=== PATIENT | male | born 1995 | race Two or more races ===

== ENCOUNTER 2023-05-15 17:09 | Inpatient (IN) | payer OTHER ==
[~2023-05-15] VITALS: Ht 182.9 cm; Wt 95.3 kg
[2023-05-15] MEDS ORDERED: FINESTERIDE (17:26)
--- NOTE | 2023-05-15 17:30 | NUR ---
PTE ALERTA Y ORIENTADO X3 REFIERE DOLOR EPIGASTRICO, VOMITOS X3 Y AL MOMENTO DE TRIAGE PTE PRESENTA HIPO JACKIE. SE MIDEN SV Y SE UBICA.
[2023-05-15] MEDS ORDERED: 0.9 % SODIUM CHLORIDE 1,000 ML IV STA (17:46)
[2023-05-15] MEDS ORDERED: FAMOTIDINE/PF 20 MG in 0.9 % SODIUM CHLORIDE 8 ML IV PUSH STA (17:46)
[2023-05-15] MEDS ORDERED: ONDANSETRON HCL 2 MG/ML VIAL IV STA (17:46)
[2023-05-15 18:13] LABS: HEMATOCRIT 38.7 % (39.0-48.0); HEMOGLOBIN 13.4 g/dL (13-16.00); MEAN CELL VOLUME 79.6 fL (80.0-100.00); MEAN CORPUSCULAR HEMOGLOBIN 27.5 pg (27.00-32.0); MEAN CORPUSCULAR HGB CONC 34.5 g/dl (32.0-36.0); PLATELET COUNT 233 K/uL (150-450); RED BLOOD COUNT 4.87 M/uL (4.00-6.00); RED CELL DISTRIBUTION WIDTH 13.2 % (11.5-14.5)
[2023-05-15] MEDS ORDERED: MEPERIDINE HCL/PF 50 MG/ML VIAL IM ONE (18:15)
--- NOTE | 2023-05-15 18:19 | NUR ---
PTE ALERTA Y ORIENTADO X3. SE EDUCA SOBRE TX MEDICO, EL MISMO REFIERE ETENDER. SE LEON MUESTRAS DE LAB BAJO MEDIDAS ASEPTICAS Y SE ADMINISTRAN MEDICAMENTOS ONDINA ORDEN MEDICA, EL MISMO NO PRESENTA REACCION ADVERSA
[2023-05-15 18:26] LABS: ALBUMIN 3.9 gm/dL (3.4-5.0); BILIRUBIN TOTAL 1.23 mg/dL (0.3-1.2); CALCIUM 9.1 mg/dL (8.5-10.1); CREATININE SERUM 0.98 mg/dL (0.70-1.30); GFR 91.07; GLOBULINA 3.8 G/DL (2.4-3.5); POTASSIUM 3.58 mEq/L (3.5-5.1); TOTAL PROTEIN 7.7 gm/dL (6.4-8.2)
[2023-05-15] MEDS ORDERED: PIPERACILLIN/TAZOBACTAM SODIUM 3.375 GM VIAL IV ONE (23:00)
--- NOTE | 2023-05-15 23:21 | NUR ---
SE ADMINISTRA MEDICAMENTO ONDINA ORDEN MEDICA BAJO MEDIDAS ASEPTICAS.
[2023-05-15] MEDS ORDERED: ONDANSETRON HCL 4 MG in DEXTROSE 5 % IN WATER 50 ML IV PRN (23:45)
[2023-05-15] MEDS ORDERED: 0.9 % SODIUM CHLORIDE 1,000 ML IV SCH (23:45)
[2023-05-16] MEDS ORDERED: PIPERACILLIN/TAZOBACTAM SODIUM 3.375 GM in DEXTROSE 5 % IN WATER 100 ML IV SCH
[2023-05-16] MEDS ORDERED: MORPHINE SULFATE 2 MG/ML CARTRIDGE IV SCH
[2023-05-16 08:18] LABS: INR 1.12; PROTHROMBIN TIME 11.7 SECONDS (9.0-11.5)
[2023-05-16] MEDS ORDERED: PANTOPRAZOLE SODIUM 40 MG/VIAL VIAL IV SCH (09:00)
[2023-05-16] MEDS ORDERED: 0.9 % SODIUM CHLORIDE 1,000 ML IV SCH (10:45)
[2023-05-16] MEDS ORDERED: ONDANSETRON HCL 2 MG/ML VIAL IV PRN (10:45)
[2023-05-16] MEDS ORDERED: BUPIVACAINE HCL/PF 0.5% 1ML ONE (10:59)
[2023-05-16] MEDS ORDERED: PIPERACILLIN/TAZOBACTAM SODIUM 3.375 GM VIAL IV ONE (13:56)
[2023-05-17 07:19] LABS: HEMATOCRIT 35.6 % (39.0-48.0); HEMOGLOBIN 12.3 g/dL (13-16.00); MEAN CELL VOLUME 80.6 fL (80.0-100.00); MEAN CORPUSCULAR HEMOGLOBIN 27.8 pg (27.00-32.0); MEAN CORPUSCULAR HGB CONC 34.5 g/dl (32.0-36.0); PLATELET COUNT 193 K/uL (150-450); RED BLOOD COUNT 4.41 M/uL (4.00-6.00); RED CELL DISTRIBUTION WIDTH 13.4 % (11.5-14.5)
[2023-05-17 07:52] LABS: CALCIUM 8.4 mg/dL (8.5-10.1); CREATININE SERUM 1.09 mg/dL (0.70-1.30); GFR 80.55; POTASSIUM 3.61 mEq/L (3.5-5.1)
[2023-05-17 09:07] LABS: INR 1.11; PARTIAL THROMBOPLASTIN TIME 26.5 SECONDS (22.0-34.0); PROTHROMBIN TIME 11.6 SECONDS (9.0-11.5)
== END 2023-05-17 17:56 | disposition home or self-care (01) | DRG 399 ==
LOC: ER 17:09 → SURH 05-16
PROVIDERS: Emergency Medicine; Internal Medicine; Surgery; ADMIT Internal Medicine; ATTEND Internal Medicine
PROC: 0DTJ4ZZ Resection of Appendix, Percutaneous Endoscopic Approach (ICD-10-PCS; principal; 2023-05-16 09:30)
DX: K35.890 Other acute appendicitis without perforation or gangrene (principal); Z20.822 Contact with and (suspected) exposure to COVID-19